=== PATIENT | female | born 1960 ===

== ENCOUNTER 2022-08-30 09:00 | Inpatient (IN) | payer OTHER ==
[~2022-08-30] VITALS: Ht 162.6 cm; Wt 73.5 kg
[2022-08-30] MEDS ORDERED: COZAAR50 MG PO (13:01)
[2022-08-30] MEDS ORDERED: CRESTOR20 MG PO (13:02)
[2022-09-06] MEDS ORDERED: LUMIGAN2.5 M1 (08:03)
[2022-09-06] MEDS ORDERED: INTESTINEX680 M1 (08:03)
[2022-09-06] MEDS ORDERED: PILOCARPINE HCL15 M4 (08:03)
[2022-09-06] MEDS ORDERED: METRONIDAZOLE500 MG (08:03)
[2022-09-06] MEDS ORDERED: LEVOBUNOLOL HCL5 ML (08:03)
== END 2022-09-07 13:11 | disposition home or self-care (01) | DRG 331 ==
LOC: SURG 09-05 07:00 → O/R 09-05 15:58 → SURG 09-05 15:58
PROVIDERS: ADMIT Colon & Rectal Surgery; ATTEND Colon & Rectal Surgery
PROC: 0DBP4ZZ Excision of Rectum, Percutaneous Endoscopic Approach (ICD-10-PCS; 2022-09-05)
PROC: 0DJD8ZZ Inspection of Lower Intestinal Tract, Via Natural or Artificial Opening Endoscopic (ICD-10-PCS; 2022-09-05)
PROC: 0DTN4ZZ Resection of Sigmoid Colon, Percutaneous Endoscopic Approach (ICD-10-PCS; principal; 2022-09-05 07:00)
DX: K57.32 Diverticulitis of large intestine without perforation or abscess without bleeding (principal); Z20.822 Contact with and (suspected) exposure to COVID-19